=== PATIENT | male | born 1950 | race Caucasian/White ===

== ENCOUNTER → 2016-12-16 | Outpatient (CLI) | payer OTHER ==
[~2016-12-16] MED LIST: ACETAMINOPHEN P1 TA5 PO; ALBUTEROL17 GM INH; ALLEGRA PO; ALLEGRA60 M1 PO; ALLERGY INJECTIONS; ALLERGY RELIEF10 M1 PO; ALLOPURINOL300 MG PO; AMBIEN10 MG PO; ARIXTRA2.5 MG/0.1 SQ; ASPIRIN81 M2 PO; ASTEPRO137 MCG/0. NS; AUGMENTIN875 MG PO; AZITHROMYCIN500 MG PO; BREO ELLIPTA 21 EACH INH; BRIMONIDINE TAR10 ML OU; BRIMONIDINE5 ML OD; CLINORIL PO; DARVOCET-N 1001 TAB PO; DEXAMET OP; DYAZIDE 37.5/251 CAP PO; EQUATE; FLEXERIL10 M1 PO; FLEXERIL10 MG PO; FLOMAX0.4 M1 PO; FLONASE 0.05% N16 G1; GABAPENTIN300 M2 PO; HYDROCODON-ACE1 EAC7 PO; KEFLEX PO; KEFLEX500 M1 PO; MOBIC15 MG PO; MUCINEX DM ER1 EACH PO; MUCINEX DM1 TAB.SR . PO; NEOMYCIN OP; NEURONTIN300 MG PO; NEXIUM; NEXIUM PO; NORCO 10-325 TA1 TAB PO; NORCO 5/325 TAB1 TAB PO; OMEPRAZOLE20 M2 PO; OMNICEF300 MG PO; PERCOCET 5-3251 TAB PO; PERCOCET7.5 PO; PHAZYME250 MG PO; PHENERGAN PO; PRILOSEC PO; PRILOSEC20 M1 PO; PRILOSEC20 MG PO; TIMOPTIC 0.5% OP5 M1 OD; TIMOPTIC 0.5% OP5 M2 OU; TIMOPTIC5 ML; TRIAMTERENE-HC1 EAC1 PO; TRIAMTERENE-HCT1 TA6 PO; TRIAMTERENE-HCT1 TA8 PO; TRIAMTERENE/HCTZ PO; ULTRAM PO; VICODIN 5/1 TAB 5/50 PO; VICODIN 5/500 T1 TAB PO; VICOPROFEN 200-1 TAB PO; VOLTAREN100 GM TOP; VOLTAREN75 MG PO; WELCHOL625 MG PO; XARELTO PO; ZOLPIDEM TARTRA10 MG PO; ZYLOPRIM PO; [UNRECOGNIZED DRUG - REMARK]; [UNRECOGNIZED DRUG - REMARK]
--- NOTE | ~2016-12-16 | MR164 ---
[facility] A Service of [facility] & [facility] RADIOLOGY TEXT RESULTS PATIENT: HOLLI DU LOCATION: [facility] : [birth year] UNIT #: [id number] AGE: [address]: Aguila Sesay MD SEX: M ORDER DR: [id number] [place] [id number] O MR#: [id number] Acc #: [id number] NAME: HOLLI DU : 1950 SEX: M STUDY DATE/TIME: 12/16/2016 11:09 UNIT: [facility] ROOM: STUDY DESCRIPTION: MR Shoulder Wo Contrast Lt Attending Physician: Aguila Sesay M.D. Referring Physician: Aguila Sesay M.D. Ordering Physician: Aguila Sesay M.D. Primary Care Physician: Kylie Charles M.D. MRI CENTER REPORT This report is preliminary unless electronic signature is present. EXAM MRI of the left shoulder without contrast HISTORY 66-year-old male fell directly onto left side 6 months ago. Complains of left shoulder pain decreased range of motion, decreased strength. Evaluate for rotator cuff tear. COMPARISON Left shoulder films 10/23/2016 TECHNIQUE Multiplanar multiecho imaging of the left shoulder utilizing a high field magnet dedicated protocol. FINDINGS There is mild AC joint arthropathy with a small amount of capsular hypertrophy. No significant periarticular inflammation. Marrow signal from the proximal humerus and glenoid appears normal. There is increased signal within the supraspinatus tendon compatible with underlying tendinopathy with attenuation of the distal portion of the supraspinatus tendon suggesting a partial thickness tear. Tendinopathy extends over least a 2 cm length of the tendon. The site of partial tear is estimated no more than 6 mm in greatest dimension and involves less than 50% of thickness of the tendon. Signal abnormality could also represent a component of cuff contusion. There is a small amount of subacromial-subdeltoid bursal inflammation and fluid. The infraspinatus, teres minor and subscapularis tendons appear intact. No muscle atrophy or edema. Superior labrum biceps anchor and long tendon biceps appears intact. Anterior and posterior labrum unremarkable. The extraarticular soft STS. [facility] A Service of [facility] & [facility] RADIOLOGY TEXT RESULTS PATIENT: HOLLI DU LOCATION: [facility] : [birth year] UNIT #: [id number] AGE: [address]: Aguila Sesay MD SEX: M ORDER DR: tissues appear normal. IMPRESSION 1. Supraspinatus tendinopathy with a partial-thickness articular-sided tear at the distal insertion of the supraspinatus tendon. This is estimated no more than 6-7 mm in greatest dimension. There is some associated subacromial-subdeltoid bursal inflammation. 2. Mild AC joint arthropathy. Dictated by... Beth Dela Cruz M.D. THIS IS AN ELECTRONICALLY VERIFIED REPORT Beth Dela Cruz M.D. at 12/17/2016 7:26 AM ROHIT/akira TD: 12/16/2016 16:33 JOB #: [id number] MRI CENTER REPORT Page 1 of 1
== END | disposition home or self-care (01) ==
LOC: SMRI 12-11 08:45
DX: M25.512 Pain in left shoulder (principal); M12.812 Other specific arthropathies, not elsewhere classified, left shoulder; M75.82 Other shoulder lesions, left shoulder
CPT/HCPCS: 73221